=== PATIENT | male | born 1975 | race Caucasian/White ===

== ENCOUNTER 2021-01-27 12:40 | Emergency (ER) | payer SELFPAY ==
[2021-01-27] MEDS ORDERED: Orphenadrine 60 MG/2 ML Inj IM ONE (14:26)
[2021-01-27] MEDS ORDERED: Ketorolac 60 MG/2 ML SDV IM ONE (14:26)
[2021-01-27] MEDS ORDERED: Acetaminophen/oxyCODONE 325-5 MG Tab PO ONE (14:26)
--- NOTE | 2021-01-27 14:55 | EDM.PDOC ---
ED HPI GENERAL MEDICAL PROBLEM - General Chief Complaint: Back Pain or Injury Stated Complaint: BACK SPASMS Time Seen by Provider: 01/27/21 13:34 Source of Information: Reports: Patient History Limitations: Reports: No Limitations - History of Present Illness INITIAL COMMENTS - FREE TEXT/NARRATIVE: HISTORY AND PHYSICAL: History of present illness: Patient is a 45-year-old male who presents emergency room today with concern of back spasm that started today. Patient states he had a prior discectomy in 2007 and since then he has had issues with back spasms periodically. Patient states that this typical of his usual back spasms and does not feel any different is the same type that he occasionally has ever since his surgery. Patient states that the muscle in the right side of his spine tightens up and is worse with movements. Patient states he has not taken anything for his symptoms. Patient denies any loss or retention of bowel bladder function or saddle anesthesia. Patient denies any history of IV drug use or any history of cancer. Patient denies fever, chills, chest pain, shortness of breath, or cough. Denies headache, neck stiff ness, change in vision, syncope, or near syncope. Denies nausea, vomiting, abdominal pain, diarrhea, constipation, or dysuria. Has not noted any blood in urine or stool. Patient has been eating and drinking appropriately. Review of systems: As per history of present illness and below otherwise all systems reviewed and negative. Past medical history: As per history of present illness and as reviewed below otherwise nonco ntributory. Surgical history: As per history of present illness and as reviewed below otherwise noncontributory. Social history: See social history for further information Family history: As per history of present illness and as reviewed below otherwise noncontributory. Physical exam: General: Patient is alert, oriented, and in no acute distress. Patient sitting comfortably on exam table. Vitals stable and reviewed by me. HEENT: Atraumatic, normocephalic, pupils equal and reactive bilaterally, negative for conjunctival pallor or scleral icterus, mucous membranes moist, throat clear, neck supple, nontender, trachea midline. No drooling or trismus noted. No meningeal signs. No hot potato voice noted. Lungs: Clear to auscultation, breath sounds equal bilaterally, chest nontender. Heart: S1S2, regular rate and rhythm without overt murmur Abdomen: Soft, nondistended, nontender. Negative for masses or hepatosplenomegaly. Negative for costovertebral tenderness. Pelvis: Stable nontender. Genitourinary: Deferred. Rectal: Deferred. Skin: Intact, warm, dry. No lesions or rashes noted. Extremities: No obvious deformity of the complete spine. No step-offs, crepitus, or point tenderness to palpation of the complete spine. Patient does have pain to palpation of the right sided paraspinous/latissimus dorsi on the right with palpation with recreation of his symptoms. Patient is able to ambulate today in the ED but does have spasm with complete straightening of the spine but he is able to do this. Patellar reflexes intact bilaterally. Heel/toe gait intact. Straight leg raise intact. Otherwise, atraumatic, negative for cords or calf pain. Neurovascular unremarkable. Neuro: Awake, alert, oriented. Cranial nerves II through XII unremarkable. Cerebellum unremarkable. Motor and sensory unremarkable throughout. Exam nonfocal. Medical Decision Making: Signs and symptoms that were prompt return to the ED thoroughly discussed with patient. Discussed importance for follow-up with primary care provider. Voices understanding and is agreeable to plan of care. Denies any further questions or concerns at this time. Diagnostics: Urinalysis Therapeutics: Toradol, Norflex, Percocet tab Prescription: Diclofenac, tramadol (12 tabs) Impression: Back spasm Plan: 1. The medication you received today does cause drowsiness, so do not drive for the remaining day. Your medication has been sent to and pharmacy. 2. When resting please lay on a flat firm surface. Limit your mobility to prevent muscle stiffness. Get up to ambulate/move around/gentle stretching multiple times throughout the day. May alternate heat and ice to painful areas. 3. Tylenol as needed for back pain. Otherwise, take the prescribed tramadol and diclofenac as directed. Diclofenac as an anti-inflammatory medication so do not take any additional NSAIDs with this medication, such as naproxen, ibuprofen, or Aleve. Tramadol, this medication may cause drowsiness, so do not take it while driving or needing to be functioning outside of the home. 4. Follow-up with your primary care provider as discussed. Return to the ED as needed and as discussed. Definitive disposition and diagnosis as appropriate pending reevaluation and review of above. Middle Back Pain Score (Numeric/FACES): 8 - Related Data Allergies Allergy/AdvReac Type Severity Reaction Status Date / Time No Known Allergies Allergy Verified 01/27/21 13:11 Home Meds: Home Meds Diclofenac Sodium [Voltaren] 75 mg PO BIDMEALS PRN #15 tab.cr 01/27/21 [Rx] traMADol [Ultram] 50 mg PO Q6H PRN #12 tab 01/27/21 [Rx] Past Medical History Musculoskeletal History: Reports: Gout - Past Surgical History Other Musculoskeletal Surgeries/Procedures:: Back surgery Social & Family History - Recreational Drug Use Recreational Drug Use: No ED ROS GENERAL - Review of Systems Review Of Systems: Comprehensive ROS is negative, except as noted in HPI. ED EXAM, GENERAL - Physical Exam Exam: See Below (See dictation) Course - Vital Signs Last Recorded V/S: Last Vital Signs Temp 98.1 F 01/27/21 13:11 Pulse 61 01/27/21 15:17 Resp 16 01/27/21 15:17 BP 121/67 01/27/21 15:17 Pulse Ox 97 01/27/21 15:17 - Orders/Labs/Meds Labs: Laboratory Tests 01/27/21 Range/Units 14:18 Urine Color YELLOW Urine Appearance CLEAR Urine pH 6.0 (5.0-8.0) Ur Specific [place] 1.020 (1.001-1.035) Urine Protein NEGATIVE (NEGATIVE) mg/dL Urine Glucose (UA) NEGATIVE (NEGATIVE) mg/dL Urine Ketones NEGATIVE (NEGATIVE) mg/dL Urine Occult Blood NEGATIVE (NEGATIVE) Urine Nitrite NEGATIVE (NEGATIVE) Urine Bilirubin NEGATIVE (NEGATIVE) Urine Urobilinogen 0.2 (<2.0) EU/dL Ur Leukocyte Esterase NEGATIVE (NEGATIVE) Meds: Medications Discontinued Medications Generic Name Dose Route Start Last Admin Trade Name Freq PRN Reason Stop Dose Admin Ketorolac Tromethamine 60 mg 01/27/21 14:26 01/27/21 14:32 Ketorolac 60 Mg/2 Ml Sdv IM 01/27/21 14:27 60 mg ONETIME ONE Administration Orphenadrine Citrate 60 mg 01/27/21 14:26 01/27/21 14:32 Orphenadrine 60 Mg/2 Ml Inj IM 01/27/21 14:27 60 mg ONETIME ONE Administration Oxycodone/Acetaminophen 1 tab 01/27/21 14:26 01/27/21 14:31 Acetaminophen/Oxycodone 325-5 Mg Tab PO 01/27/21 14:27 1 tab ONETIME ONE Administration Departure - Departure Time of Disposition: 14:54 Disposition: Home, Self-Care 01 Clinical Impression: Back spasm - Discharge Information Prescriptions: traMADol [Ultram] 50 mg PO Q6H PRN #12 tab PRN Reason: Pain (Severe 7-10) Diclofenac Sodium [Voltaren] 75 mg PO BIDMEALS PRN #15 tab.cr PRN Reason: Pain Referrals: PCP,None [Primary Care Provider] - Forms: ED Department Discharge Additional Instructions: The following information is given to patients seen in the emergency department who are being discharged to home. This information is to outline your options for follow-up care. We provide all patients seen in our emergency department with a follow-up referral. The need for follow-up, as well as the timing and circumstances, are variable depending upon the specifics of your emergency department visit. If you don't have a primary care physician on staff, we will provide you with a referral. We always advise you to contact your personal physician following an emergency department visit to inform them of the circumstance of the visit and for follow-up with them and/or the need for any referrals to a consulting specialist. The emergency department will also refer you to a specialist when appropriate. This referral assures that you have the opportunity for follow-up care with a specialist. All of these measure are taken in an effort to provide you with optimal care, which includes your follow-up. Under all circumstances we always encourage you to contact your private physician who remains a resource for coordinating your care. When calling for follow-up care, please make the office aware that this follow-up is from your recent emergency room visit. If for any reason you are refused follow-up, please contact the [facility] Emergency Department at and asked to speak to the emergency department charge nurse. [facility] [address] [place] [id number] [id number] 1. The medication you received today does cause drowsiness, so do not drive for the remaining day. Your [facility] been [facility]. 2. When resting please lay on a flat firm surface. Limit your mobility to prevent muscle stiffness. Get up to ambulate/move around/gentle stretching multiple times throughout the day. May alternate heat and ice to painful areas. 3. Tylenol as needed for back pain. Otherwise, take the prescribed tramadol and diclofenac as directed. Diclofenac as an anti-inflammatory medication so do not take any additional NSAIDs with this medication, such as naproxen, ibuprofen, or Aleve. Tramadol, this medication may cause drowsiness, so do not take it while driving or needing to be functioning outside of the home. 4. Follow-up with your primary care provider as discussed. Return to the ED as needed and as discussed. Sepsis Event Note (ED) - Evaluation Sepsis Screening Result: No Definite Risk - Focused Exam Vital Signs: Vital Signs Temp Pulse Resp BP Pulse Ox 01/27/21 15:17 61 16 121/67 97 01/27/21 14:45 56 L 115/68 98 01/27/21 13:42 64 16 122/73 98 01/27/21 13:11 98.1 F 77 16 105/68 94 L
== END 2021-01-27 15:20 | disposition home or self-care (01) ==
LOC: MW.ED 12:40
DX: M62.830 Muscle spasm of back (principal)
CPT/HCPCS: 81003; 96372; 99283; A9270; J1885; J2360

== ENCOUNTER 2022-08-02 18:20 | Emergency (ER) | payer BC, OTHER ==
[2022-08-02] MEDS ORDERED: Ketorolac 60 MG/2 ML SDV IM ONE (18:56)
[2022-08-02] MEDS ORDERED: Diazepam 2 MG Tab PO ONE (18:56)
[2022-08-02] MEDS ORDERED: Lidocaine 4% 1 each Patch TOP SCH (19:00)
== END 2022-08-02 19:57 | disposition home or self-care (01) ==
LOC: MW.ED 18:20
DX: M62.830 Muscle spasm of back (principal)
CPT/HCPCS: 96372; 99283; A9270; J1885

== ENCOUNTER 2023-03-31 20:40 | Emergency (ER) | payer BC ==
[2023-03-31] MEDS: Indomethacin 25 MG Cap PO ONE (21:22)
== END 2023-03-31 21:52 | disposition home or self-care (01) ==
LOC: MW.ED 20:40
DX: M10.9 Gout, unspecified (principal); Z86.16 Personal history of COVID-19
CPT/HCPCS: 99283; A9270